=== PATIENT | male | born 1950 | race Caucasian/White ===

== ENCOUNTER 2016-11-04 14:56 | Inpatient (IN) ==
--- NOTE | 2016-11-04 16:59 | XRay Report ---
XR abdomen complete w decub Indication: Nausea and vomiting. History of prior bowel obstruction. Abdomen 3 views: Left lateral decubitus shows no free air. When compared to 07/24/2016, scattered air-fluid levels and gaseous prominence of small bowel are now present. Gas is present within the colon to the level of the rectum. Small amount of stool is shown the rectal vault. Cholecystectomy clips. Impression: Bowel obstruction versus severe ileus. No pneumoperitoneum. PROCEDURE INTERPRETED AT [facility] DEPARTMENT OF RADIOLOGY Final Report Signed by: Steve Bauman M.D.
--- NOTE | 2016-11-04 17:10 | Emergency Department Note ---
Arrival - Arrival Chief Complaint: Nausea/Vomiting/Diarrhea Stated Complaint: VOMITING HX OBSTRUCTIONS ED Nursing Triage Note: Pt c/o nausea and vomiting x 3 today. Last BM this am. Pt denies abd pain. Mode of Arrival: Wheelchair - History of Present Illness HPI Narrative: 66-year-old male with complete total colectomy about 3 years ago. Since then he has had recurrent bowel obstructions that have not required recurrent surgeries but have required admissions and sometimes NG tube. Today he had episode of vomiting 3 with possible belly pain however the patient has mental retardation and often does not complain of pain. Caretakers nurses present, no known fever, no other symptoms or complaints noted today. Was patient Dr. Perales Allergies/Adverse Reactions: Allergies Allergy/AdvReac Type Severity Reaction Status Date / Time tegaserod [From Zelnorm] AdvReac Nausea Verified 07/11/15 08:17 Home Medications: Home Medications Medication Instructions Recorded Confirmed Type glipiZIDE [Glucotrol] 5 mg PO BID 01/03/15 07/23/16 History Cholestyramine [Questran] 4 gm PO DAILY #30 pack 04/14/15 07/23/16 Rx Ferrous Sulfate Tab [Feosol 325 mg PO QAM 07/11/15 07/23/16 History Original Tab] Cyanocobalamin Tab [Vitamin B12 500 mcg PO 1600 11/13/15 07/23/16 History Tab] Fluticasone Propionate 1 spray BOTH NARES BID PRN 11/13/15 07/23/16 History [Fluticasone 50 mcg Nasal [place]] Loratadine Tab [Claritin Tab] 10 mg PO DAILY PRN 11/13/15 07/23/16 History Pantoprazole Tab [Protonix Tab] 40 mg PO QAM 11/13/15 07/23/16 History Ergocalciferol (Vitamin D2) 50,000 unit PO Q30D 01/07/16 07/23/16 History [Vitamin D2] Metoclopramide Tab [Reglan Tab] 10 mg PO TID 01/07/16 07/23/16 History Metoprolol Succinate Xl [Toprol Xl] 50 mg PO QAM 07/23/16 07/23/16 History Review of System - Review of System 12 point system: reviewed and no additional remarkable complaints except as stated Medical,Surgical,& Family Hx - Medical History Medical History: noncontributory Cardio: History of: Hypertension Psychological: History of: Psychiatric Problems (mental retardation) HEENT: History of: Ear Problem, Eye Problem (congenital bilateral blindness) Endocrine: History of: Diabetes Mellitus (NIDDM) Gastrointestinal: History of: Bowel Obstruction, GI Problems (megacolon) - Surgical History Thoracic Surgeries: Patient denies;: Lobectomy Abdominal Surgeries: Surgical HX of: Abdominal Surgery (bowel resection and sigmoid volvulus), Cholecystectomy - Family History Family History: Reports;: Family Cancer (father), Family Diabetes (father), Family Heart Disease (mother), Family Hypertension (father), Family Stroke ( father) - Social History Smoking Status: Never smoker Exam Physical Examination: Patient appears stable comfortable no acute distress. He is awake and alert and answers questions but denies pain. Lungs are clear bilaterally. Cardiovascular regular rate and rhythm. Abdomen is soft nontender with old surgical scar noted. Vital Signs: Vital Signs Temperature 98.0 F 11/04/16 15:17 Pulse Rate 112 H 11/04/16 15:17 Respiratory Rate 18 11/04/16 15:17 Blood Pressure 145/89 11/04/16 15:17 O2 Sat by Pulse Oximetry 94 L 11/04/16 15:17 Course Course Narrative: Medical decision making: History and exam and x-ray suggest recurrent bowel obstruction, discussed with surgeon special education educational assistant for evaluation of probable admission. Disposition Clinical Impression: History of small bowel obstruction, Ileus, SBO (small bowel obstruction) Case discussed with: patient, other Disposition: Still a Patient Condition: Undetermined Time of Disposition: 17:11
[2016-11-04] MEDS ORDERED: ONDANSETRON 4 MG/2 ML VIAL IV PRN (17:18)
[2016-11-04] MEDS ORDERED: ACETAMINOPHEN 325 MG TABLET PO PRN (17:18)
--- NOTE | 2016-11-04 17:35 | General Surg History&Physical ---
Assessment and Plan - Time spent with patient Time spent with patient: Less than 30 minutes (1) SBO (small bowel obstruction) Status: Acute Assessment and plan: I have reviewed his x-rays and he has what appears to be either an ileus or obstruction. It is difficult to tell with this patient and I am familiar with him from previous admissions. We will go ahead and admit him for observation tonight and check a CT scan in the morning if he is not improved. We will give him IV fluids and hold him n.p.o. He is a poor historian and but is generally very cooperative and has responded well to conservative treatment in the past. Current Visit: Yes History of Present Illness Chief complaint: Bowel obstruction History of present illness: Mr. Gould is a 66 year old male Who was doing well until several hours ago had nausea vomiting and acute abdominal distention. This was after he ate a hamburger. He is distended but denies abdominal pain now. He had a normal bowel movement this morning. He does not know of aggravating or alleviating factors. He has had multiple admissions in the past for bowel obstruction versus ileus and these have all spontaneously resolved before. Home Medications Medication Instructions Recorded Confirmed Type glipiZIDE [Glucotrol] 5 mg PO BID 01/03/15 07/23/16 History Cholestyramine [Questran] 4 gm PO DAILY #30 pack 04/14/15 07/23/16 Rx Ferrous Sulfate Tab [Feosol 325 mg PO QAM 07/11/15 07/23/16 History Original Tab] Cyanocobalamin Tab [Vitamin B12 500 mcg PO 1600 11/13/15 07/23/16 History Tab] Fluticasone Propionate 1 spray BOTH NARES BID PRN 11/13/15 07/23/16 History [Fluticasone 50 mcg Nasal [place]] Loratadine Tab [Claritin Tab] 10 mg PO DAILY PRN 11/13/15 07/23/16 History Pantoprazole Tab [Protonix Tab] 40 mg PO QAM 11/13/15 07/23/16 History Ergocalciferol (Vitamin D2) 50,000 unit PO Q30D 01/07/16 07/23/16 History [Vitamin D2] Metoclopramide Tab [Reglan Tab] 10 mg PO TID 01/07/16 07/23/16 History Metoprolol Succinate Xl [Toprol Xl] 50 mg PO QAM 07/23/16 07/23/16 History Allergies Allergy/AdvReac Type Severity Reaction Status Date / Time tegaserod [From Zelnorm] AdvReac Nausea Verified 07/11/15 08:17 Medical,Surgical,& Family Hx - Medical History Cardio: History of: Hypertension Psychological: History of: Psychiatric Problems (mental retardation) HEENT: History of: Ear Problem, Eye Problem (congenital bilateral blindness) Endocrine: History of: Diabetes Mellitus (NIDDM) Gastrointestinal: History of: Bowel Obstruction, GI Problems (megacolon) - Surgical History Thoracic Surgeries: Patient denies;: Lobectomy Abdominal Surgeries: Surgical HX of: Abdominal Surgery (bowel resection and sigmoid volvulus), Cholecystectomy - Family History Family History: Reports;: Family Cancer (father), Family Diabetes (father), Family Heart Disease (mother), Family Hypertension (father), Family Stroke ( father) - Social History Smoking Status: Never smoker Exam - Constitutional Vitals: Period Temp Pulse Resp BP Sys/Carlos Pulse Ox Last 24 Hr 98.0 F 112 18 145/89 94 General appearance: no acute distress - Head Head exam: Present: normocephalic - Eye Eye exam: Absent: scleral icterus - ENT Mouth exam: Present: normal voice - Respiratory Respiratory exam: Present: clear to auscultation bilaterally. Absent: accessory muscle use - Cardiovascular Cardiovascular exam: Present: RRR - GI/Abdominal GI/Abdominal exam: Present: normal bowel sounds, distended, soft. Absent: guarding, tenderness, rebound - Extremities Exam Extremities exam: Absent: edema - Neurological Exam Neurological exam: Present: alert, oriented X3. Absent: motor sensory deficit Speech: Present: normal - Skin Skin exam: Present: normal color - Constitutional Constitutional: Absent: anorexia, chills, fever(s), weight loss - EENT Nose, mouth and throat: Absent: dysphagia, hoarseness - Cardiovascular Cardiovascular: Absent: chest pain at rest, chest pain with activity, dyspnea, dyspnea on exertion, syncope - Respiratory Respiratory: Absent: cough, dyspnea, hemoptysis, dyspnea on exertion - Gastrointestinal Gastrointestinal: Present: abdominal pain, bloating, nausea, vomiting. Absent: cramping, diarrhea, hematemesis, hematochezia, melena, jaundice - Genitourinary Genitourinary: Absent: hematuria - Musculoskeletal Musculoskeletal: Absent: back pain - Neurological Neurological: Absent: focal weakness, syncope - Endocrine Endocrine: Absent: polyuria Hematologic/Lymphatic: Absent: easy bleeding, easy bruising Results - Diagnostic Findings Procedure: CT Abdomen and Pelvis: pending
[2016-11-04 18:17] LABS: Basophils % 0.2 % (0.0-0.8); Hematocrit 46.6 VOL% (42.0-52.0); Hemoglobin 15.6 GM/DL (14.0-18.0); Immature Granulocytes % 0.7 %; Immature Granulocytes Absolute 0.12 #; Lymphocytes # 2.1 10*3/uL (1.4-4.0); Lymphocytes % 11.6 % (21.2-54.2); Mean Corpuscular HGB Conc 33.5 GM/DL (32-36); Mean Corpuscular Hemoglobin 32 PG (27-34); Mean Corpuscular Volume 94.9 FL (87-102); Mean Platelet Volume 10.4 FL (9.6-12.0); Monocytes % 5.8 % (1.7-12.7); Neutrophils # 14.6 10*3/uL (1.4-7.4); Neutrophils % 81.7 % (38.7-73.9); Platelet Count 229 T/CUMM (130-400); Red Blood Count 4.91 MC/CUMM (3.8-5.5); Red Cell Distribution Width 13.4 % (9.3-17.3); White Blood Count 17.9 T/CUMM (4-12)
[2016-11-04 18:41] LABS: Albumin 4.5 G/DL (3.4-5.0); Calcium 9.9 MG/DL (8.5-10.1); Osmolality,Calculated 271.2 MOS/KG (273-304); Potassium 3.6 MMOL/L (3.5-5.1); Total Protein 9.9 G/DL (6.4-8.3)
[2016-11-04] MEDS: LACTATED RINGERS 1,000 ML IV SCH (18:50)
[2016-11-05] MEDS: LACTATED RINGERS 1,000 ML IV SCH ×3 (04:46→14:09)
[2016-11-05 07:32] LABS: Basophils % 0.2 % (0.0-0.8); Eosinophils # 0.1 10*3/uL (0.0-0.87); Eosinophils % 0.4 % (0.00-10.9); Hematocrit 41.2 VOL% (42.0-52.0); Immature Granulocytes % 0.4 %; Immature Granulocytes Absolute 0.05 #; Lymphocytes # 3.1 10*3/uL (1.4-4.0); Lymphocytes % 25.4 % (21.2-54.2); Mean Corpuscular Hemoglobin 32 PG (27-34); Mean Corpuscular Volume 94.1 FL (87-102); Mean Platelet Volume 10.5 FL (9.6-12.0); Neutrophils # 8.1 10*3/uL (1.4-7.4); Neutrophils % 65.6 % (38.7-73.9); Platelet Count 184 T/CUMM (130-400); Red Blood Count 4.38 MC/CUMM (3.8-5.5); Red Cell Distribution Width 13.7 % (9.3-17.3); White Blood Count 12.3 T/CUMM (4-12)
[2016-11-05] MEDS: PANTOPRAZOLE 40 MG TABLET PO SCH (09:09)
--- NOTE | 2016-11-05 10:18 | General Surgery Progress Note ---
Assessment and Plan (1) SBO (small bowel obstruction) Status: Acute Assessment and plan: I have reviewed his x-rays and he has what appears to be either an ileus or obstruction. It is difficult to tell with this patient and I am familiar with him from previous admissions. We will go ahead and admit him for observation tonight and check a CT scan in the morning if he is not improved. We will give him IV fluids and hold him n.p.o. He is a poor historian and but is generally very cooperative and has responded well to conservative treatment in the past. 11/05: He had a couple of bowel movements during the night and his abdomen is less distended. It is nontender. He is a very poor historian but seems to deny any nausea. We will start him on some p.o. now. Hopefully this ileus or small bowel obstruction is resolving. I have held off of the nasogastric tube since he resolved so promptly before. If he has further problems we will do a CT scan of his abdomen. Current Visit: Yes Subjective Patient reports: Present: feels better, pain is less, bowel movement. Absent: nausea, vomiting Exam - Constitutional Vitals: Period Temp Pulse Resp BP Sys/Carlos Pulse Ox Last 24 Hr 98 F-100.0 F 82-116 16-20 97-145/61-89 92-98 General appearance: no acute distress - Head Head exam: Present: normocephalic - Eye Eye exam: Absent: scleral icterus - Respiratory Respiratory exam: Absent: accessory muscle use - GI/Abdominal GI/Abdominal exam: Present: distended, soft. Absent: tenderness, rebound Results - Labs CBC & BMP: 11/05/16 07:22 11/04/16 17:51 Lab Results: I have reviewed the past 24 hour labs
[2016-11-06] MEDS: LACTATED RINGERS 1,000 ML IV SCH ×3 (01:06→08:51)
[2016-11-06] MEDS: PANTOPRAZOLE 40 MG TABLET PO SCH (08:51)
--- NOTE | 2016-11-06 09:51 | General Surgery Progress Note ---
Assessment and Plan (1) SBO (small bowel obstruction) Status: Acute Assessment and plan: I have reviewed his x-rays and he has what appears to be either an ileus or obstruction. It is difficult to tell with this patient and I am familiar with him from previous admissions. We will go ahead and admit him for observation tonight and check a CT scan in the morning if he is not improved. We will give him IV fluids and hold him n.p.o. He is a poor historian and but is generally very cooperative and has responded well to conservative treatment in the past. 11/05: He had a couple of bowel movements during the night and his abdomen is less distended. It is nontender. He is a very poor historian but seems to deny any nausea. We will start him on some p.o. now. Hopefully this ileus or small bowel obstruction is resolving. I have held off of the nasogastric tube since he resolved so promptly before. If he has further problems we will do a CT scan of his abdomen. 11/06: He feels well and has no complaints. He has been eating normally and having normal bowel movements. His abdomen is nontender. It appears that his obstruction or ileus has completely resolved and he can be safely discharged and we will be happy to see him back on an as-needed basis Current Visit: Yes Subjective Patient reports: Present: feels better, bowel movement. Absent: still having pain, nausea, vomiting Exam - Constitutional Vitals: Period Temp Pulse Resp BP Sys/Carlos Pulse Ox Last 24 Hr 97.6 F-98.6 F 67-89 16-20 101-130/60-80 94-96 General appearance: no acute distress - Respiratory Respiratory exam: Absent: accessory muscle use - GI/Abdominal GI/Abdominal exam: Present: soft. Absent: distended, tenderness Results - Labs CBC & BMP: 11/05/16 07:22 11/04/16 17:51 Quality Measures - VTE Contraindication to Pharmacological VTE Prophylaxis: High Risk of Bleeding
--- NOTE | 2016-11-06 11:00 | Discharge Summary ---
Hospital Course - Hospital Course Hospital Course: Patient is a 66-year-old male admitted with ileus versus small bowel obstruction. With conservative treatment including IV fluids and bowel rest, he began to pass flatus and passed his bowels. He ultimately gradually increase his diet to tolerance. He was tolerating activity, voiding, passing his bowels without difficulty the time of discharge. He was just discharged back to his long-term care facility in good condition without complication. He follows with Dr. Dowling on an as needed basis. Diagnosis - Discharge Diagnosis (1) SBO (small bowel obstruction) Status: Acute Specialty Discharge - Follow Up or Referrals Follow up with: Jeffy Dowling III., MD [Physician] - (as needed) Discharge Plan - Discharge Data Disposition: Disch To Home/Self Care Condition at Discharge: Stable Discharge Diet: advance to your usual diet Activity: resume usual activities as tolerated Contact your physician if you experience:: Nausea/Vomiting (abdominal pain or distension) - Discharge Medications Continue glipiZIDE [Glucotrol] 5 mg PO BID Cholestyramine [Questran] 4 gm PO DAILY #30 pack Ferrous Sulfate Tab [Feosol Original Tab] 325 mg PO QAM Fluticasone Propionate [Fluticasone 50 mcg Nasal [place]] 1 spray BOTH NARES BID PRN PRN Reason: NEEDED Cyanocobalamin Tab [Vitamin B12 Tab] 500 mcg PO DAILY Pantoprazole Tab [Protonix Tab] 40 mg PO QAM Loratadine Tab [Claritin Tab] 10 mg PO DAILY PRN PRN Reason: Allergy Symptoms Metoclopramide Tab [Reglan Tab] 10 mg PO TID Ergocalciferol (Vitamin D2) [Vitamin D2] 50,000 unit PO Q30D Metoprolol Succinate Xl [Toprol Xl] 50 mg PO QAM - Follow Up or Referral Follow Up: Jeffy Dowling III., MD [Physician] - (as needed) - Forms/Instructions Instructions: Bowel Obstruction (DC) Exam - Constitutional Vitals: Period Temp Pulse Resp BP Sys/Carlos Pulse Ox Last 24 Hr 97.6 F-98.6 F 67-89 16-20 101-130/60-80 94-96 DS: Provider Date of admission: 11/04/16 17:18 Primary care physician: . No PCP Attending physician on admission: Jeffy Dowling III., Consults: None Discharging clinician: Subha Peterson PA-C
[2016-11-06 11:28] VITALS: BP 134/73
== END 2016-11-06 12:53 | disposition home or self-care (01) | DRG 390 ==
LOC: N.ED 14:56 → N.EDINP 17:18 → N.3E 18:31
PROVIDERS: ADMIT Surgery; ATTEND Surgery

== ENCOUNTER 2017-05-25 18:03 | Inpatient (IN) ==
[2017-05-25 20:08] LABS: Basophils % 0.2 % (0.0-0.8); Hematocrit 44.8 VOL% (42.0-52.0); Hemoglobin 14.5 GM/DL (14.0-18.0); Immature Granulocytes % 0.6 %; Lymphocytes # 1.1 10*3/uL (1.4-4.0); Lymphocytes % 6.8 % (21.2-54.2); Mean Corpuscular HGB Conc 32.4 GM/DL (32-36); Mean Corpuscular Hemoglobin 32 PG (27-34); Mean Corpuscular Volume 97.8 FL (87-102); Mean Platelet Volume 10.9 FL (9.6-12.0); Monocytes % 5.7 % (1.7-12.7); Neutrophils # 14.5 10*3/uL (1.4-7.4); Neutrophils % 86.7 % (38.7-73.9); Platelet Count 237 T/CUMM (130-400); Red Blood Count 4.58 MC/CUMM (3.8-5.5); Red Cell Distribution Width 13.3 % (9.3-17.3); White Blood Count 16.7 T/CUMM (4-12)
[2017-05-25] MEDS ORDERED: ONDANSETRON 4 MG/2 ML VIAL IV STA (20:15)
[2017-05-25] MEDS ORDERED: HYDROmorphone 2 MG/1 ML VIAL IV STA (20:15)
[2017-05-25] MEDS ORDERED: SODIUM CHLORIDE 0.9% 500 ML IV STA (20:15)
[2017-05-25] MEDS ORDERED: PANTOPRAZOLE 40 MG VIAL IV STA (20:15)
[2017-05-25 20:28] LABS: Albumin 4.2 G/DL (3.4-5.0); Bilirubin,Total 0.8 MG/DL (0.2-1.0); Osmolality,Calculated 273.4 MOS/KG (273-304); Potassium 4.2 MMOL/L (3.5-5.1); Total Protein 9.2 G/DL (6.4-8.3)
[2017-05-25] MEDS ORDERED: HYDROmorphone 2 MG/1 ML VIAL ONE (21:02)
[2017-05-25] MEDS ORDERED: ONDANSETRON 4 MG/2 ML VIAL ONE (21:02)
[2017-05-25] MEDS ORDERED: PANTOPRAZOLE 40 MG VIAL IV ONE (21:02)
[2017-05-25 21:59] LABS: PT Patient Result 10.7 SECS; Partial Thromboplastin Time 27.3 SECS (0-40)
[2017-05-25] MEDS ORDERED: SODIUM CHLORIDE 0.9% 100 ML IV ONE (22:14)
[2017-05-25] MEDS ORDERED: PIPERACILLIN/TAZOBACTAM 3,375 MG VIAL IV ONE (22:14)
[2017-05-25 22:40] LABS: Troponin I Only 0.034 NG/ML (0.00-0.045)
[2017-05-26] MEDS: PIPERACILLIN/TAZOBACTAM 3,375 MG in SODIUM CHLORIDE 0.9% 100 ML IV SCH ×4 (00:20→21:42)
[2017-05-26 00:30] LABS: Apearance,Urine CLEAR (Clear); Bilirubin,Urine Negative (Negative); Blood, Urine Negative (Negative); Glucose,Urine (UA) 50 mg/dL (Negative); Ketones,Urine 5 mg/dL (Negative); Mucus,Urine Occasional /LPF (Occasional); Nitrite,Urine Negative (Negative); Protein,Urine Negative; RBC,Urine 1 /HPF (0-4); Urine Color Yellow (Yellow); Urine Specific Gravity 1.044 (1.001-1.035); Urine Urobilinogen < 2.0 EU/DL (0.2-1.0); WBC,Urine 1 /HPF (0-6)
[2017-05-26] MEDS ORDERED: GLUCAGON 1 MG VIAL IM PRN (01:04)
[2017-05-26] MEDS ORDERED: DEXTROSE 50% 25 GM/50 ML VIAL IV PRN (01:04)
[2017-05-26] MEDS ORDERED: SODIUM CHLORIDE 0.9% 2,000 ML IV ONE (01:04)
[2017-05-26] MEDS ORDERED: ONDANSETRON 4 MG/2 ML VIAL IV PRN (01:04)
[2017-05-26] MEDS ORDERED: HYDROmorphone 2 MG/1 ML VIAL IV PRN (01:04)
[2017-05-26] MEDS: VANCOMYCIN INJ 1,250 MG in SODIUM CHLORIDE 0.9% 250 ML IV SCH ×2 (02:09→16:55)
[2017-05-26] MEDS: INSULIN REGULAR 100 UNIT/ML SUBCUT SCH ×4 (02:29→19:11)
[2017-05-26] MEDS: SODIUM CHLORIDE 0.9% 1,000 ML IV SCH ×3 (04:26→19:16)
[2017-05-26] MEDS: metroNIDAZOLE INJ 500 MG in PREMIX 1 EACH IV SCH ×3 (04:26→19:16)
[2017-05-26 05:43] LABS: Basophils % 0.2 % (0.0-0.8); Eosinophils # 0.1 10*3/uL (0.0-0.87); Eosinophils % 0.5 % (0.00-10.9); Hematocrit 38.2 VOL% (42.0-52.0); Hemoglobin 12.3 GM/DL (14.0-18.0); Immature Granulocytes % 0.5 %; Immature Granulocytes Absolute 0.05 #; Lymphocytes # 2.1 10*3/uL (1.4-4.0); Lymphocytes % 21.6 % (21.2-54.2); Mean Corpuscular HGB Conc 32.2 GM/DL (32-36); Mean Corpuscular Hemoglobin 32 PG (27-34); Mean Corpuscular Volume 97.9 FL (87-102); Mean Platelet Volume 10.7 FL (9.6-12.0); Monocytes % 10.4 % (1.7-12.7); Neutrophils # 6.4 10*3/uL (1.4-7.4); Neutrophils % 66.8 % (38.7-73.9); Platelet Count 177 T/CUMM (130-400); Red Cell Distribution Width 13.7 % (9.3-17.3); White Blood Count 9.6 T/CUMM (4-12)
[2017-05-26 06:06] LABS: Lactic Acid 2.4 MMOL/L (0.4-2.0)
[2017-05-26 06:08] LABS: Band Neutrophils 2 % (0-10); Eosinophils 1 % (0-10); Hypochromasia 1+; Lymphocytes 21 % (20-55); Macrocytosis Slight; Platelet Estimate Adequate; Segmented Neutrophils 65 % (50-85); Total Cells Counted 100
[2017-05-26 06:20] LABS: Albumin 3.3 G/DL (3.4-5.0); Bilirubin,Total 0.9 MG/DL (0.2-1.0); Osmolality,Calculated 279.7 MOS/KG (273-304); Potassium 3.9 MMOL/L (3.5-5.1); Total Protein 7.1 G/DL (6.4-8.3)
[2017-05-26] MEDS ORDERED: ENOXAPARIN 40 MG/0.4 ML SYRINGE SUBCUT SCH (09:00)
[2017-05-26] MEDS: PANTOPRAZOLE 40 MG VIAL IV SCH (09:52)
[2017-05-26] MEDS: LEVOFLOXACIN INJ 750 MG in PREMIX 1 EACH IV SCH (09:53)
[2017-05-27] MEDS: INSULIN REGULAR 100 UNIT/ML SUBCUT SCH ×4 (00:42→17:59)
[2017-05-27] MEDS: metroNIDAZOLE INJ 500 MG in PREMIX 1 EACH IV SCH ×4 (01:12→21:59)
[2017-05-27] MEDS: VANCOMYCIN INJ 1,250 MG in SODIUM CHLORIDE 0.9% 250 ML IV SCH ×2 (05:23→20:20)
[2017-05-27] MEDS: PIPERACILLIN/TAZOBACTAM 3,375 MG in SODIUM CHLORIDE 0.9% 100 ML IV SCH ×2 (05:23→15:28)
[2017-05-27] MEDS ORDERED: SODIUM PHOSPHATE ENEMA 133 ML BOTTLE RECTAL ONE ×2 (07:44→11:15)
[2017-05-27] MEDS: SODIUM CHLORIDE 0.9% 1,000 ML IV SCH ×3 (08:18→17:59)
[2017-05-27] MEDS: PANTOPRAZOLE 40 MG VIAL IV SCH (09:27)
[2017-05-27] MEDS: LEVOFLOXACIN INJ 750 MG in PREMIX 1 EACH IV SCH (09:29)
[2017-05-27] MEDS ORDERED: PROPOFOL 200 MG/20 ML VIAL IV ONE (11:07)
[2017-05-27] MEDS ORDERED: LIDOCAINE 2% 5 ML VIAL ONE (11:07)
[2017-05-28] MEDS: INSULIN REGULAR 100 UNIT/ML SUBCUT SCH ×5 (00:22→23:36)
[2017-05-28] MEDS: PIPERACILLIN/TAZOBACTAM 3,375 MG in SODIUM CHLORIDE 0.9% 100 ML IV SCH ×3 (01:08→17:05)
[2017-05-28] MEDS: SODIUM CHLORIDE 0.9% 1,000 ML IV SCH ×3 (01:09→17:08)
[2017-05-28] MEDS: metroNIDAZOLE INJ 500 MG in PREMIX 1 EACH IV SCH ×4 (04:59→23:05)
[2017-05-28 07:18] LABS: Calcium 8.9 MG/DL (8.5-10.1); Osmolality,Calculated 276.5 MOS/KG (273-304); Potassium 3.8 MMOL/L (3.5-5.1)
[2017-05-28] MEDS: PANTOPRAZOLE 40 MG VIAL IV SCH (09:14)
[2017-05-28] MEDS: VANCOMYCIN INJ 1,250 MG in SODIUM CHLORIDE 0.9% 250 ML IV SCH ×2 (09:14→21:57)
[2017-05-28] MEDS: LEVOFLOXACIN INJ 750 MG in PREMIX 1 EACH IV SCH (09:20)
[2017-05-28] MEDS ORDERED: BISACODYL 10 MG SUPP RECTAL ONE (12:19)
[2017-05-29] MEDS: PIPERACILLIN/TAZOBACTAM 3,375 MG in SODIUM CHLORIDE 0.9% 100 ML IV SCH ×2 (01:50→09:25)
[2017-05-29] MEDS: metroNIDAZOLE INJ 500 MG in PREMIX 1 EACH IV SCH ×2 (05:05→09:24)
[2017-05-29] MEDS: INSULIN REGULAR 100 UNIT/ML SUBCUT SCH ×2 (05:39→13:01)
[2017-05-29 06:42] LABS: Basophils % 0.5 % (0.0-0.8); Eosinophils # 0.1 10*3/uL (0.0-0.87); Eosinophils % 1.3 % (0.00-10.9); Hematocrit 35.5 VOL% (42.0-52.0); Hemoglobin 11.7 GM/DL (14.0-18.0); Immature Granulocytes % 0.6 %; Immature Granulocytes Absolute 0.05 #; Lymphocytes # 1.8 10*3/uL (1.4-4.0); Mean Corpuscular Hemoglobin 32 PG (27-34); Mean Corpuscular Volume 98.3 FL (87-102); Mean Platelet Volume 10.4 FL (9.6-12.0); Monocytes # 0.7 10*3/uL (0.11-0.8); Monocytes % 8.3 % (1.7-12.7); Neutrophils # 6.1 10*3/uL (1.4-7.4); Neutrophils % 69.3 % (38.7-73.9); Platelet Count 169 T/CUMM (130-400); Red Blood Count 3.61 MC/CUMM (3.8-5.5); Red Cell Distribution Width 13.6 % (9.3-17.3); White Blood Count 8.8 T/CUMM (4-12)
[2017-05-29] MEDS: SODIUM CHLORIDE 0.9% 1,000 ML IV SCH ×2 (06:46→09:25)
[2017-05-29 07:21] LABS: Calcium 8.2 MG/DL (8.5-10.1); Osmolality,Calculated 277.5 MOS/KG (273-304); Potassium 3.4 MMOL/L (3.5-5.1)
[2017-05-29] MEDS: PANTOPRAZOLE 40 MG VIAL IV SCH (09:24)
[2017-05-29] MEDS: LEVOFLOXACIN INJ 750 MG in PREMIX 1 EACH IV SCH (09:24)
[2017-05-29] MEDS: VANCOMYCIN INJ 1,250 MG in SODIUM CHLORIDE 0.9% 250 ML IV SCH (09:25)
[2017-05-29 12:59] VITALS: BP 138/78
== END 2017-05-29 14:09 | disposition home or self-care (01) | DRG 388 ==
LOC: N.ED 18:03 → N.EDINP 22:34 → SUATTDRO 22:34 → N.5E 05-26 00:23
PROVIDERS: ADMIT Internal Medicine; ATTEND Hospitalist

== ENCOUNTER 2018-10-19 13:24 | Inpatient (IN) ==
[2018-10-19] MEDS ORDERED: ONDANSETRON 4 MG/2 ML VIAL IV STA (15:06)
[2018-10-19 15:45] LABS: Apearance,Urine CLEAR (Clear); Bacteria,Urine Occasional /HPF (Few); Bilirubin,Urine Negative (Negative); Blood, Urine Negative (Negative); Glucose,Urine (UA) >=500 mg/dL (Negative); Ketones,Urine 5 mg/dL (Negative); Nitrite,Urine Negative (Negative); Protein,Urine Negative; RBC,Urine 2 /HPF (0-4); Urine Color Straw (Yellow); Urine Specific Gravity 1.001 (1.001-1.035); Urine Urobilinogen < 2.0 EU/DL (0.2-1.0)
[2018-10-19 17:34] LABS: Basophils % 0.3 % (0.0-0.8); Eosinophils % 0.3 % (0.00-10.9); Hematocrit 39.8 VOL% (42.0-52.0); Hemoglobin 12.8 GM/DL (14.0-18.0); Immature Granulocytes % 1.3 %; Immature Granulocytes Absolute 0.12 #; Lymphocytes # 1.9 10*3/uL (1.4-4.0); Lymphocytes % 20.5 % (21.2-54.2); Mean Corpuscular HGB Conc 32.2 GM/DL (32-36); Mean Corpuscular Volume 94.5 FL (87-102); Mean Platelet Volume 9.7 FL (9.6-12.0); Monocytes % 7.6 % (1.7-12.7); Platelet Count 219 T/CUMM (130-400); Red Blood Count 4.21 MC/CUMM (3.8-5.5); Red Cell Distribution Width 13.7 % (9.3-17.3); White Blood Count 9.1 T/CUMM (4-12)
[2018-10-19 17:56] LABS: Albumin 3.4 G/DL (3.4-5.0); Bilirubin,Total 0.4 MG/DL (0.2-1.0); Calcium 9.1 MG/DL (8.5-10.1); Osmolality,Calculated 266.5 MOS/KG (273-304); Total Protein 8.5 G/DL (6.4-8.3)
[2018-10-19] MEDS ORDERED: ACETAMINOPHEN 325 MG TABLET PO PRN (19:46)
[2018-10-19] MEDS ORDERED: ONDANSETRON 4 MG/2 ML VIAL IV PRN (19:46)
[2018-10-19] MEDS: SODIUM CHLORIDE 0.9% 1,000 ML IV SCH (21:01)
[2018-10-20] MEDS: SODIUM CHLORIDE 0.9% 1,000 ML IV SCH ×3 (04:57→19:48)
[2018-10-20 05:03] LABS: Basophils # 0.1 10*3/uL (0.0-0.2); Basophils % 0.5 % (0.0-0.8); Eosinophils # 0.1 10*3/uL (0.0-0.87); Eosinophils % 0.8 % (0.00-10.9); Hematocrit 37.2 VOL% (42.0-52.0); Immature Granulocytes % 1.2 %; Immature Granulocytes Absolute 0.12 #; Lymphocytes # 2.4 10*3/uL (1.4-4.0); Lymphocytes % 23.6 % (21.2-54.2); Mean Corpuscular HGB Conc 32.3 GM/DL (32-36); Mean Corpuscular Volume 94.9 FL (87-102); Mean Platelet Volume 10.1 FL (9.6-12.0); Monocytes % 8.6 % (1.7-12.7); Neutrophils % 65.3 % (38.7-73.9); Platelet Count 214 T/CUMM (130-400); Red Blood Count 3.92 MC/CUMM (3.8-5.5); White Blood Count 10.3 T/CUMM (4-12)
[2018-10-20 05:23] LABS: Calcium 8.6 MG/DL (8.5-10.1)
[2018-10-20] MEDS ORDERED: DEXTROSE 50% 25 GM/50 ML VIAL IV PRN (08:03)
[2018-10-20] MEDS ORDERED: GLUCAGON 1 MG VIAL IM PRN (08:03)
[2018-10-20] MEDS: INSULIN LISPRO 100 UNIT/ML SUBCUT SCH ×3 (12:32→21:24)
[2018-10-21] MEDS: SODIUM CHLORIDE 0.9% 1,000 ML IV SCH ×2 (03:52→12:15)
[2018-10-21 05:17] LABS: Basophils % 0.4 % (0.0-0.8); Eosinophils # 0.2 10*3/uL (0.0-0.87); Eosinophils % 1.7 % (0.00-10.9); Hematocrit 38.1 VOL% (42.0-52.0); Hemoglobin 12.1 GM/DL (14.0-18.0); Immature Granulocytes % 1.1 %; Lymphocytes # 2.5 10*3/uL (1.4-4.0); Lymphocytes % 26.7 % (21.2-54.2); Mean Corpuscular HGB Conc 31.8 GM/DL (32-36); Mean Corpuscular Volume 96.7 FL (87-102); Mean Platelet Volume 9.8 FL (9.6-12.0); Monocytes % 7.2 % (1.7-12.7); Neutrophils % 62.9 % (38.7-73.9); Platelet Count 189 T/CUMM (130-400); Red Blood Count 3.94 MC/CUMM (3.8-5.5); Red Cell Distribution Width 13.9 % (9.3-17.3); White Blood Count 9.3 T/CUMM (4-12)
[2018-10-21 05:44] LABS: Calcium 8.1 MG/DL (8.5-10.1)
[2018-10-21] MEDS: INSULIN LISPRO 100 UNIT/ML SUBCUT SCH ×4 (07:53→20:27)
[2018-10-21] MEDS: POTASSIUM CHLORIDE RIDER 10 MEQ in PREMIX 1 EACH IV PRN (09:16)
[2018-10-22] MEDS: SODIUM CHLORIDE 0.9% 1,000 ML IV SCH ×4 (01:06→22:03)
[2018-10-22] MEDS: POTASSIUM CHLORIDE RIDER 10 MEQ in PREMIX 1 EACH IV PRN ×7 (01:45→22:02)
[2018-10-22] MEDS: INSULIN LISPRO 100 UNIT/ML SUBCUT SCH ×4 (08:30→20:33)
[2018-10-23] MEDS: SODIUM CHLORIDE 0.9% 1,000 ML IV SCH ×3 (06:21→22:38)
[2018-10-23] MEDS: INSULIN LISPRO 100 UNIT/ML SUBCUT SCH ×4 (08:11→20:05)
[2018-10-24] MEDS: SODIUM CHLORIDE 0.9% 1,000 ML IV SCH (06:12)
[2018-10-24] MEDS: INSULIN LISPRO 100 UNIT/ML SUBCUT SCH ×2 (08:53→13:10)
[2018-10-24 12:52] VITALS: BP 132/73
== END 2018-10-24 14:16 | disposition home or self-care (01) | DRG 390 ==
LOC: N.ED 13:24 → N.EDINP 18:24 → N.3E 19:08
PROVIDERS: ADMIT Surgery; ATTEND Surgery

== ENCOUNTER 2019-02-08 11:07 | Inpatient (IN) ==
[2019-02-08] MEDS ORDERED: SODIUM CHLORIDE 0.9% 1,000 ML IV STA ×2 (11:39→13:08)
[2019-02-08] MEDS ORDERED: HYDROmorphone 2 MG/1 ML VIAL IV STA (11:39)
[2019-02-08] MEDS ORDERED: ONDANSETRON 4 MG/2 ML VIAL IV STA (11:39)
[2019-02-08 11:57] LABS: Apearance,Urine CLEAR (Clear); Bilirubin,Urine Negative (Negative); Blood, Urine Small mg/dL (Negative); Glucose,Urine (UA) >=500 mg/dL (Negative); Granular Casts,Urine 33 /LPF (0-1); Hyaline Casts,Urine 84 /LPF (0-3); Ketones,Urine 5 mg/dL (Negative); Mucus,Urine Occasional /LPF (Occasional); Nitrite,Urine Negative (Negative); Protein,Urine 100 MG/DL; RBC,Urine 1 /HPF (0-4); Squamous Epithelial Cell,Urine Occasional /HPF (0-10); Urine Color Yellow (Yellow); Urine Specific Gravity 1.021 (1.001-1.035); Urine Urobilinogen < 2.0 EU/DL (0.2-1.0); WBC,Urine 13 /HPF (0-6)
[2019-02-08 12:17] LABS: Basophils % 0.1 % (0.0-0.8); Hematocrit 43.4 VOL% (42.0-52.0); Hemoglobin 14.8 GM/DL (14.0-18.0); Immature Granulocytes % 0.3 %; Immature Granulocytes Absolute 0.02 #; Lymphocytes # 0.8 10*3/uL (1.4-4.0); Lymphocytes % 10.1 % (21.2-54.2); Mean Corpuscular HGB Conc 34.1 GM/DL (32-36); Mean Corpuscular Volume 91.9 FL (87-102); Mean Platelet Volume 10.6 FL (9.6-12.0); Monocytes % 5.5 % (1.7-12.7); Platelet Count 218 T/CUMM (130-400); Red Blood Count 4.72 MC/CUMM (3.8-5.5); Red Cell Distribution Width 13.7 % (9.3-17.3); White Blood Count 7.9 T/CUMM (4-12)
[2019-02-08 12:48] LABS: Alanine Aminotransferase 43 U/L (16-61); Alkaline Phosphatase 75 U/L (45-117); Aspartate Amino Transferase 39 U/L (0-37); Blood Urea Nitrogen 30 MG/DL (7-18); Calcium 8.9 MG/DL (8.5-10.1); Estimated Glom Filtration Rate 45 ML/MIN; Glucose 353 MG/DL (74-106); Osmolality,Calculated 264.9 MOS/KG (273-304); Total Protein 9.7 G/DL (6.4-8.3)
[2019-02-08 12:54] LABS: Band Neutrophils 13 % (0-10); Lymphocytes 8 % (20-55); Polychromasia Slight; Segmented Neutrophils 71 % (50-85); Total Cells Counted 100
[2019-02-08 12:55] LABS: Platelet Estimate Normal
[2019-02-08] MEDS ORDERED: MORPHINE 4 MG/1 ML VIAL IV PRN (15:07)
[2019-02-08] MEDS ORDERED: ONDANSETRON 4 MG/2 ML VIAL IV PRN (15:07)
[2019-02-08] MEDS ORDERED: ACETAMINOPHEN 325 MG TABLET PO PRN (15:07)
[2019-02-08] MEDS ORDERED: DEXTROSE 10% 25 GM/250 ML BAG IV PRN (15:19)
[2019-02-08] MEDS ORDERED: GLUCAGON 1 MG VIAL IM PRN (15:19)
[2019-02-08] MEDS ORDERED: SODIUM CHLORIDE 0.9% 1,000 ML IV SCH (15:30)
[2019-02-08 15:46] LABS: Calcium 8.1 MG/DL (8.5-10.1); Free T4 (Free Thyroxine) 1.05 NG/DL (0.76-1.46); Osmolality,Calculated 270.8 MOS/KG (273-304); Thyroid Stimulating Hormone 0.939 uIU/ml (0.358-3.74)
[2019-02-08] MEDS ORDERED: SODIUM CHLORIDE 23.4% CONC INJ 38.5 MEQ in STERILE WATER INJ 1,000 ML IV SCH (17:00)
[2019-02-08] MEDS ORDERED: INSULIN REGULAR 100 UNIT/ML SUBCUT SCH (18:00)
[2019-02-08] MEDS: DEXTROSE 5% 1,000 ML IV SCH (18:20)
[2019-02-08] MEDS: INSULIN REGULAR 100 UNIT/ML SUBCUT SCH ×2 (18:29→19:49)
[2019-02-08] MEDS: ENOXAPARIN 40 MG/0.4 ML SYRINGE SUBCUT SCH (18:30)
[2019-02-08] MEDS: FAMOTIDINE 20 MG/2 ML VIAL IV SCH (18:45)
[2019-02-09] MEDS: INSULIN REGULAR 100 UNIT/ML SUBCUT SCH ×6 (01:07→21:01)
[2019-02-09 04:15] LABS: Basophils % 0.4 % (0.0-0.8); Eosinophils % 0.2 % (0.00-10.9); Hematocrit 39.5 VOL% (42.0-52.0); Hemoglobin 13.2 GM/DL (14.0-18.0); Immature Granulocytes % 0.2 %; Immature Granulocytes Absolute 0.01 #; Lymphocytes # 1.7 10*3/uL (1.4-4.0); Lymphocytes % 29.8 % (21.2-54.2); Mean Corpuscular HGB Conc 33.4 GM/DL (32-36); Mean Corpuscular Volume 93.2 FL (87-102); Mean Platelet Volume 10.6 FL (9.6-12.0); Monocytes % 14.6 % (1.7-12.7); Neutrophils % 54.8 % (38.7-73.9); Platelet Count 187 T/CUMM (130-400); Red Blood Count 4.24 MC/CUMM (3.8-5.5); Red Cell Distribution Width 13.9 % (9.3-17.3); White Blood Count 5.6 T/CUMM (4-12)
[2019-02-09 04:24] LABS: Albumin 3.2 G/DL (3.4-5.0); Bilirubin,Total 0.7 MG/DL (0.2-1.0); Calcium 8.5 MG/DL (8.5-10.1); Osmolality,Calculated 269.7 MOS/KG (273-304); Risk Ratio 3.1; Total Protein 7.7 G/DL (6.4-8.3); VLDL CHOLESTEROL 23.4 MG/DL
[2019-02-09 04:33] LABS: Folate 5.2 NG/ML (5.4-24.0)
[2019-02-09] MEDS: DEXTROSE 5% 1,000 ML IV SCH ×2 (06:06→21:02)
[2019-02-09] MEDS: DEXTROSE 5% KCL 20 MEQ 20 MEQ/1,000 ML BAG IV SCH (09:10)
[2019-02-09] MEDS ORDERED: MAGNESIUM SULF RIDER 2 GM in PREMIX 1 EACH IV ONE (13:52)
[2019-02-09] MEDS: ENOXAPARIN 40 MG/0.4 ML SYRINGE SUBCUT SCH (16:30)
[2019-02-09] MEDS: FAMOTIDINE 20 MG/2 ML VIAL IV SCH (18:05)
[2019-02-10] MEDS: INSULIN REGULAR 100 UNIT/ML SUBCUT SCH ×6 (00:09→21:04)
[2019-02-10 05:40] LABS: Basophils % 0.5 % (0.0-0.8); Eosinophils # 0.1 10*3/uL (0.0-0.87); Eosinophils % 1.4 % (0.00-10.9); Hematocrit 38.9 VOL% (42.0-52.0); Immature Granulocytes % 0.5 %; Immature Granulocytes Absolute 0.02 #; Lymphocytes # 2.1 10*3/uL (1.4-4.0); Lymphocytes % 46.2 % (21.2-54.2); Mean Corpuscular HGB Conc 33.4 GM/DL (32-36); Mean Corpuscular Volume 92.6 FL (87-102); Mean Platelet Volume 10.4 FL (9.6-12.0); Monocytes % 10.6 % (1.7-12.7); Neutrophils % 40.8 % (38.7-73.9); Platelet Count 175 T/CUMM (130-400); Red Cell Distribution Width 13.7 % (9.3-17.3); White Blood Count 4.4 T/CUMM (4-12)
[2019-02-10] MEDS: DEXTROSE 5% KCL 20 MEQ 20 MEQ/1,000 ML BAG IV SCH (05:50)
[2019-02-10 05:57] LABS: Calcium 8.5 MG/DL (8.5-10.1)
[2019-02-10 06:24] LABS: Band Neutrophils 4 % (0-10); Lymphocytes 42 % (20-55); Segmented Neutrophils 43 % (50-85)
[2019-02-10 06:25] LABS: Platelet Estimate Adequate; Total Cells Counted 100
[2019-02-10] MEDS ORDERED: POTASSIUM CHLORIDE RIDER 10 MEQ in PREMIX 1 EACH IV PRN (07:00)
[2019-02-10] MEDS ORDERED: POTASSIUM CHLORIDE 20 MEQ/15 ML UDCUP PO ONE (07:33)
[2019-02-10] MEDS ORDERED: ERGOCALCIFEROL 50,000 UNIT CAPSULE PO SCH (09:00)
[2019-02-10] MEDS: PANTOPRAZOLE 40 MG TABLET PO SCH (10:11)
[2019-02-10] MEDS: FERROUS SULFATE 325 MG TABLET PO SCH (10:11)
[2019-02-10] MEDS: METOCLOPRAMIDE 10 MG TABLET PO SCH ×3 (10:11→21:02)
[2019-02-10] MEDS: CYANOCOBALAMIN 500 MCG TABLET PO SCH (10:12)
[2019-02-10] MEDS ORDERED: INSULIN REGULAR 100 UNIT/ML ONE (10:15)
[2019-02-10 14:16] LABS: Osmolality, Serum 281 mOsm/kg (275 - 295)
[2019-02-10 15:01] LABS: Osmolality, Urine 644 mOsm/kg (150 - 1150)
[2019-02-10] MEDS: ENOXAPARIN 40 MG/0.4 ML SYRINGE SUBCUT SCH (17:09)
[2019-02-11 04:55] LABS: Calcium 8.4 MG/DL (8.5-10.1)
[2019-02-11] MEDS ORDERED: MAGNESIUM SULF RIDER 2 GM in PREMIX 1 EACH IV PRN (07:32)
[2019-02-11] MEDS ORDERED: MAGNESIUM SULF RIDER 4 GM in PREMIX 1 EACH IV PRN (07:32)
[2019-02-11] MEDS ORDERED: POTASSIUM CHLORIDE 20 MEQ/15 ML UDCUP PO ONE (08:41)
[2019-02-11] MEDS: INSULIN REGULAR 100 UNIT/ML SUBCUT SCH ×2 (08:42→12:19)
[2019-02-11] MEDS: METOCLOPRAMIDE 10 MG TABLET PO SCH (08:43)
[2019-02-11] MEDS: FERROUS SULFATE 325 MG TABLET PO SCH (08:43)
[2019-02-11] MEDS: PANTOPRAZOLE 40 MG TABLET PO SCH (08:43)
[2019-02-11] MEDS: CYANOCOBALAMIN 500 MCG TABLET PO SCH (08:43)
[2019-02-11 11:51] VITALS: BP 132/64
== END 2019-02-11 14:30 | disposition home or self-care (01) | DRG 389 ==
LOC: N.ED 11:07 → N.EDINP 14:30 → N.3E 15:08
PROVIDERS: ADMIT Internal Medicine; ATTEND Internal Medicine